=== PATIENT | female | born 1960 | race Caucasian/White ===

== ENCOUNTER 2018-01-14 23:42 | Emergency (ER) | payer SELFPAY ==
[2018-01-15 00:13] LABS: Urine Blood NEGATIVE (NEG); Urine Glucose NEGATIVE (NEG); Urine Protein NEGATIVE (NEG)
--- NOTE | 2018-01-15 00:35 | ER ---
Nurse's Notes [facility] Name: Caroline Contreras Age: 57 yrs Sex: Female : 1960 Arrival Date: 01/14/2018 Time: 23:46 Bed 6 Private MD: Diagnosis: Dysuria Presentation: 01/15 00:01 Presenting complaint: Patient states: she has had bilateral lower leg swelling for bb approx 4 months she also has pain and pressure with urination and states she is although her last menstrual cycle was 12 years ago "this is a miracle baby I am going to name him Seamus" she is also complaining of floaters and flashes since Wednesday. Transition of care: patient was not received from another setting of care. Onset of symptoms was January 15, 2018. Risk Assessment: Do you want to hurt yourself or someone else? Patient reports no desire to harm self or others. Initial Sepsis Screen: Does the patient meet any 2 criteria? No. Patient's initial sepsis screen is negative. Does the patient have a suspected source of infection? No. Patient's initial sepsis screen is negative. Care prior to arrival: None. 00:01 Method Of Arrival: Ambulatory bb 00:01 Acuity: BROWN 3 bb Triage Assessment: 00:23 General: Appears in no apparent distress. Behavior is calm, cooperative. Pain: Denies ak1 pain. EENT: No signs and/or symptoms were reported regarding the EENT system. 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 Gait is shuffling, pt c/o bilateral lower leg swelling. no edema noted. . Speech is normal, Facial symmetry appears normal. Cardiovascular: No deficits noted. Respiratory: No deficits noted. GI:. 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 : No signs and/or symptoms were reported regarding the genitourinary system. Derm: No deficits noted. Musculoskeletal: No deficits noted. 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 - Social history:: Smoking status: Patient/guardian denies using tobacco, Patient/guardian denies using alcohol, street drugs. - Ebola Screening: : No symptoms or risks identified at this time. - Family history:: not pertinent. - Hospitalizations: : No recent hospitalization is reported. Screenin:23 Abuse screen: Denies threats or abuse. Denies injuries from another. Nutritional ak1 screening: No deficits noted. Tuberculosis screening: No symptoms or risk factors identified. Fall Risk None identified. Assessment: 00:26 Reassessment: Patient appears in no apparent distress at this time. No changes from ak1 previously documented assessment. see triage assessment. 00:43 Reassessment: Patient appears in no apparent distress at this time. No changes from jd3 previously documented assessment. provider reminded of pt reporting floaters in her eyes. provider reported pt had nothing wrong with eyes and was good for discharge. pt reported understanding of discharge instructions, even and steady gait upon discharge. Vital Signs: 00:07 BP 128 / 74; Pulse 78; Resp 16 S; Temp 98.0(O); Pulse Ox 99% on R/A; Weight 63.96 kg bb (R); Height 5 ft. 1 in. (154.94 cm) (R); Pain 4/10; 00:07 Body Mass Index 26.64 (63.96 kg, 154.94 cm) ED Course: 01/14 23:46 Patient arrived in ED. ag3 01/15 00:07 Triage completed. bb 00:07 Arm band placed on Patient placed in an exam room, on a stretcher, on pulse oximetry. bb 00:19 Peng Heredia MD is Attending Physician. wa 00:20 Jody Abreu, RN is Primary Nurse. ak1 00:26 Patient has correct armband on for positive identification. Bed in low position. Call ak1 light in reach. Side rails up X 1. Pulse ox on. NIBP on. 00:46 No provider procedures requiring assistance completed. Patient did not have IV access jd3 during this emergency room visit. Administered Medications: No medications were administered Outcome: 00:35 Discharge ordered by . wa 00:46 Discharged to home ambulatory. jd3 00:46 Condition: stable 00:46 Discharge instructions given to patient, Instructed on discharge instructions, follow up and referral plans. Demonstrated understanding of instructions, follow-up care. 00:47 Patient left the ED. jd3 Signatures: Bonita Laughlin RN RN Jody Wyatt RN RN ak1 Peng Heredia MD MD wa Davies, Jonathon, RN RN jd3 Alyson Howard ag3 Corrections: (The following items were deleted from the chart) 00:47 00:43 Reassessment: Patient appears in no apparent distress at this time. No changes jd3 from previously documented assessment. provider reminded pt reporting floaters in her eyes. provider reported pt had nothing wrong with eyes and was good for discharge. pt reported understanding of discharge instructions, even and steady gait upon discharge. jd3
--- NOTE | 2018-01-15 00:35 | EDPHYS ---
Physician Documentation [facility] Name: Caroline Contreras Age: 57 yrs Sex: Female : 1960 Arrival Date: 01/14/2018 Time: 23:46 Bed 6 Private MD: ED Physician Peng Heredia HPI: 01/15 01:07 This 57 yrs old Female presents to ER via Ambulatory with complaints of Leg wa Swelling. 01:07 pt with multiple complaints. states she's with a baby she is going to name nicolette Way. says although test have been negative, she knows she's . also c/o swelling in both legs. also puffiness around the eyes which she believes is because of her . Onset: The symptoms/episode began/occurred 5 month(s) ago. Severity of symptoms: At their worst the symptoms were moderate in the emergency department the symptoms are unchanged. on going problem. The patient has not recently seen a physician. 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 - Social history:: Smoking status: Patient/guardian denies using tobacco, Patient/guardian denies using alcohol, street drugs. - Ebola Screening: : No symptoms or risks identified at this time. - Family history:: not pertinent. - Hospitalizations: : No recent hospitalization is reported. ROS: 01:10 Constitutional: Negative for fever, chills, and weight loss, Eyes: Negative for injury, wa pain, redness, and discharge, ENT: Negative for injury, pain, and discharge, Neck: Negative for injury, pain, and swelling, Cardiovascular: Negative for chest pain, palpitations, and edema, Respiratory: Negative for shortness of breath, cough, wheezing, and pleuritic chest pain, Back: Negative for injury and pain, Skin: Negative for injury, rash, and discoloration, Neuro: Negative for headache, weakness, numbness, tingling, and seizure. 01:10 All other systems are negative. 01:11 Abdomen/GI: Positive for abd distension. wa 01:11 : Positive for states she's . Exam: 01:11 Constitutional: This is a well developed, well nourished patient who is awake, alert, wa and in no acute distress. Head/Face: Normocephalic, atraumatic. Eyes: Pupils equal round and reactive to light, extra-ocular motions intact. Lids and lashes normal. Conjunctiva and sclera are non-icteric and not injected. Cornea within normal limits. Periorbital areas with no swelling, redness, or edema. ENT: Nares patent. No nasal discharge, no septal abnormalities noted. Tympanic membranes are normal and external auditory canals are clear. Oropharynx with no redness, swelling, or masses, exudates, or evidence of obstruction, uvula midline. Mucous membranes moist. Neck: Trachea midline, no thyromegaly or masses palpated, and no cervical lymphadenopathy. Supple, full range of motion without nuchal rigidity, or vertebral point tenderness. No Meningismus. Cardiovascular: Regular rate and rhythm with a normal S1 and S2. No gallops, murmurs, or rubs. Normal PMI, no JVD. No pulse deficits. Respiratory: Lungs have equal breath sounds bilaterally, clear to auscultation and percussion. No rales, rhonchi or wheezes noted. No increased work of breathing, no retractions or nasal flaring. Abdomen/GI: Soft, non-tender, with normal bowel sounds. No distension or tympany. No guarding or rebound. No evidence of tenderness throughout. Back: No spinal tenderness. No costovertebral tenderness. Full range of motion. Skin: Warm, dry with normal turgor. Normal color with no rashes, no lesions, and no evidence of cellulitis. MS/ Extremity: Pulses equal, no cyanosis. Neurovascular intact. Full, normal range of motion. Neuro: Awake and alert, GCS 15, oriented to person, place, time, and situation. Cranial nerves II-XII grossly intact. Motor strength 5/5 in all extremities. Sensory grossly intact. Cerebellar exam normal. Normal gait. Vital Signs: 00:07 BP 128 / 74; Pulse 78; Resp 16 S; Temp 98.0(O); Pulse Ox 99% on R/A; Weight 63.96 kg bb (R); Height 5 ft. 1 in. (154.94 cm) (R); Pain 4/10; 00:07 Body Mass Index 26.64 (63.96 kg, 154.94 cm) elder MDM: 00:19 Patient medically screened. wa 01:12 Differential Diagnosis normal exam. no swelling noted in face or legs. UA and UPT wa negative. unable to convince pt that there is no preg. Delusional disorder? will refer to PCP. no HI or SI. no acute psychosis. . Data reviewed: vital signs, nurses notes, lab test result(s). Test interpretation: by ED physician or midlevel provider: UA noted negative. UPT negative. 01/15 00:10 Order name: Urine Dipstick--Ancillary (enter results); Complete Time: 00:20 ms 01/15 00:10 Order name: Urine --Ancillary (enter results); Complete Time: 00:20 ms Administered Medications: No medications were administered Disposition: 01/15/18 00:35 Discharged to Home. Impression: Dysuria. - Condition is Stable. - Discharge Instructions: Dysuria. - Medication Reconciliation Form, Thank You Letter, Antibiotic Education, Prescription Opioid Use form. - Follow up: Private Physician; When: 2 - 3 days; Reason: Recheck today's complaints. - Notes: follow up with your doctor within 3 days for further evaluation of your symptoms Signatures: Dispatcher [employer] Bonita Avila RN RN Peng Dunham MD MD wa Davies, Jonathon, RN RN jd3 Corrections: (The following items were deleted from the chart) 00:47 00:35 01/15/2018 00:35 Discharged to Home. Impression: Dysuria. Condition is Stable. jd3 Forms are Medication Reconciliation Form, Thank You Letter, Antibiotic Education, Prescription Opioid Use. Follow up: Private Physician; When: 2 - 3 days; Reason: Recheck today's complaints. wa
== END 2018-01-15 00:47 | disposition home or self-care (01) ==
LOC: ER 23:42
DX: R30.0 Dysuria (principal); Z88.2 Allergy status to sulfonamides
CPT/HCPCS: 81003; 81025; 99283

== ENCOUNTER 2020-01-02 17:54 | Emergency (ER) | payer SELFPAY ==
[2020-01-02] MEDS ORDERED: NA CHLORIDE 0.9% 1,000 ML ONE (18:58)
[2020-01-02 19:23] LABS: Absolute Lymphocytes (CBC) 1.9 K/uL (0.7-4.9); Basophils % 0.4 % (0-1.3); Hematocrit 37.7 % (36.0-45.0); Lymphocytes % 23.2 % (15.3-44.8); MPV 10.3 fL (7.6-11.3); RBC Red Blood Cell Count 4.09 M/uL (3.86-4.86)
--- NOTE | 2020-01-02 19:25 | RAD REPORT ---
EXAM DESCRIPTION: RAD - Chest Single View - 01/02/2020 6:54 pm CLINICAL HISTORY: CHEST PAIN Chest pain. COMPARISON: CHEST PA AND LAT 2 VIEW dated 10/03/2014 FINDINGS: Portable technique limits examination quality. The lungs are grossly clear. The heart is normal in size. No displaced fractures. IMPRESSION: No acute intrathoracic process suspected.
[2020-01-02 19:43] LABS: ALT/SGPT 20 U/L (12-78); AST/SGOT 18 U/L (15-37); Albumin 3.8 g/dL (3.4-5.0); Alkaline Phosphatase 77 U/L (45-117); BUN Blood Urea Nitrogen 16 mg/dL (7-18); Bicarbonate 29 mmol/L (21-32); Bilirubin Direct < 0.1 mg/dL (0-0.2); Bilirubin Total 0.3 mg/dL (0.2-1.0); Glucose Level 96 mg/dL (74-106); Lipase 159 U/L (73-393); Magnesium 2.3 mg/dL (1.8-2.4); NT PRO-BNP 53 pg/mL (<125); Potassium 3.7 mmol/L (3.5-5.1); Protein, Total 7.6 g/dL (6.4-8.2); Sodium Level 141 mmol/L (136-145); Troponin (Emerg Dept Use Only) < 0.02 ng/mL (0.0-0.045)
--- NOTE | 2020-01-02 20:20 | ER ---
Nurse's Notes [facility] Name: Caroline Contreras Age: 59 yrs Sex: Female : 1960 Arrival Date: 01/02/2020 Time: 17:54 Bed 19 Private MD: Diagnosis: Abdominal tenderness;Paresthesia of skin-diffuse Presentation: 01/01 18:06 Chief complaint: Patient states: Flu shot just around 1645 Face, neck, chest started ca1 going numb. Now my belly feels bloated, and feels funny. Denies N/V/D. Coronavirus screen: Client denies travel out of the [place] in the last 14 days. At this time, the client does not indicate any symptoms associated with coronavirus-19. Ebola Screen: Patient negative for fever greater than or equal to 101.5 degrees Fahrenheit, and additional compatible Ebola Virus Disease symptoms Patient denies exposure to infectious person. Patient denies travel to an Ebola-affected area in the 21 days before illness onset. No symptoms or risks identified at this time. Initial Sepsis Screen: Does the patient meet any 2 criteria? No. Patient's initial sepsis screen is negative. Does the patient have a suspected source of infection? No. Patient's initial sepsis screen is negative. Risk Assessment: Do you want to hurt yourself or someone else? Patient reports no desire to harm self or others. Onset of symptoms was January 02, 2020. 18:06 Method Of Arrival: Ambulatory ca1 18:06 Acuity: BROWN 3 ca1 Historical: - Allergies: 18:09 Sulfa (Sulfonamide Antibiotics); ca1 - PMHx: 18:09 None; ca1 - PSHx: 18:09 endometriosis; benign breast procedure; ca1 - Immunization history:: Adult Immunizations up to date. - Social history:: Smoking status: Patient denies any tobacco usage or history of. - Family history:: not pertinent. Screenin:15 Abuse screen: Denies threats or abuse. Nutritional screening: No deficits noted. rb1 Tuberculosis screening: No symptoms or risk factors identified. Fall Risk None identified. Assessment: 18:15 General: Appears in no apparent distress. comfortable, Behavior is calm, cooperative. rb1 Neuro: Level of Consciousness is awake, alert, obeys commands, Oriented to person, place, time, situation, Reports Face, Neck, Chest numbness. Cardiovascular: Patient's skin is warm and dry. Respiratory: Airway is patent Respiratory effort is even, unlabored, Respiratory pattern is regular, symmetrical. GI: No signs and/or symptoms were reported involving the gastrointestinal system. : No signs and/or symptoms were reported regarding the genitourinary system. 19:39 Reassessment: Patient appears in no apparent distress at this time. Patient and/or fu family updated on plan of care and expected duration. Pain level reassessed. Patient is alert, oriented x 3, equal unlabored respirations, skin warm/dry/pink. 19:42 Pain: Denies pain. fu 20:11 Reassessment: Patient appears in no apparent distress at this time. Patient and/or fu family updated on plan of care and expected duration. Pain level reassessed. Patient is alert, oriented x 3, equal unlabored respirations, skin warm/dry/pink. ambulated to the restroom. Vital Signs: 18:06 BP 114 / 79; Pulse 96; Resp 18 S; Temp 97.5(TE); Pulse Ox 100% on R/A; Weight 58.97 kg ca1 (R); Height 5 ft. 2 in. (157.48 cm) (R); 19:40 BP 113 / 72; Pulse 74; Resp 20; Temp 98.2; Pulse Ox 99% ; Pain 0/10; fu 20:39 BP 114 / 75; Pulse 82; Resp 14; Pulse Ox 100% on R/A; Pain 0/10; fu 18:06 Body Mass Index 23.78 (58.97 kg, 157.48 cm) ca1 Moe Coma Score: 18:34 Eye Response: spontaneous(4). Verbal Response: oriented(5). Motor Response: obeys taz commands(6). Total: 15. NIH Stroke Scale Scores: 18:34 NIHSS Score: 0 [facility] ED Course: 17:54 Patient arrived in ED. ds1 17:59 Durga Kaur MD is Attending Physician. taz 18:08 Triage completed. ca1 18:09 Arm band placed on right wrist. ca1 18:15 Patient has correct armband on for positive identification. Bed in low position. Call rb1 light in reach. Side rails up X 1. quality assurance monitor chassis on. Pulse ox on. NIBP on. Warm blanket given. 18:42 Katie Schultz, RN is Primary Nurse. rb1 18:54 XRAY Chest (1 view) In Process Unspecified. EDMS 19:07 Inserted saline lock: 22 gauge in right antecubital area, using aseptic technique. rb1 Blood collected. 19:42 No provider procedures requiring assistance completed. fu 20:12 Durga Escobar PA is PHCP. cp 20:19 Dutch Amos MD is Referral Physician. cp 20:38 IV discontinued, bleeding controlled, Pressure dressing applied. fu Administered Medications: 19:10 Drug: NS 0.9% 1000 ml Route: IV; Rate: 1 bolus; Site: right antecubital; rb1 20:28 Follow up: Response: No adverse reaction fu Intake: 19:00 IV: 350ml; Total: 350ml. fu Outcome: 20:19 Discharge ordered by . cp 20:38 Discharged to home ambulatory, with family. fu 20:38 Condition: good 20:38 Discharge instructions given to patient, Instructed on discharge instructions, follow up and referral plans. Demonstrated understanding of instructions, follow-up care, Prescriptions given X 2. 20:40 Patient left the ED. fu NIH Stroke Scale - NIH Stroke Score Date: 01/02/2020 Time: 18:34 Total Score = 0 1a. Level of Consciousness (LOC) - 0(Alert) 1b. Level of Consciousness (LOC) (Year \T\ Age) - 0(Both) 1c. LOC Commands (Open \T\ Closes Eyes/Dishtank Operator) - 0(Both) 2. Best Gaze (Lateral Gaze Paresis) - 0(Normal) 3. Visual Field Loss - 0(No visual loss) 4. Facial Palsy - 0(Normal) 5a. Left Arm: Motor (10-second hold) - 0(No drift) 5b. Right Arm: Motor (10-second hold) - 0(No drift) 6a. Left Leg: Motor (5-second hold - always test supine) - 0(No drift) 6b. Right Leg: Motor (5-second hold - always test supine) - 0(No drift) 7. Limb Ataxia (finger/nose \T\ heel/swanson - test with eyes open) - 0(Absent) 8. Sensory Loss (pinprick arms/legs/face) - 0(Normal) 9. Best Language: Aphasia (description/naming/reading) - 0(No aphasia) 10. Dysarthria (speech clarity - read or repeat words) - 0(Normal) 11. Extinction and Inattention (visual/tactile/auditory/spatial/personal) - 0(No abnormality) Initials: taz Signatures: Dispatcher [employer] EDDurga Land MD MD cha Sanford, Toya ds1 Durga Escobar PA PA cp Barber, Rebecca, RN RN rb1 Skyler Lira RN RN fu Acob, Cheryl, RN RN ca1 Corrections: (The following items were deleted from the chart) 18:09 18:06 Chief complaint: Patient states: Flu shot just now. Face, neck, chest ca1 started going numb. Now my belly feels bloated, and feels funny. Denies N/V/D. ca1
--- NOTE | 2020-01-02 20:20 | EDPHYS ---
Physician Documentation [facility] Name: Caroline Contreras Age: 59 yrs Sex: Female : 1960 Arrival Date: 01/02/2020 Time: 17:54 Bed 19 Private MD: ED Physician Durga Kaur HPI: 01/01 18:26 This 59 yrs old Female presents to ER via Ambulatory with complaints of taz Numbness, Abdominal Pain. 18:26 The patient's problem is reported as paresthesias, all over, weakness. Onset: The taz symptoms/episode began/occurred just prior to arrival, on going since 2018. Duration: The episode is continuous. Context: the episode(s) was witnessed, by family, , happened after a flu shot. The symptoms are alleviated by nothing. The symptoms are aggravated by nothing. Associated signs and symptoms: The patient has no apparent associated signs or symptoms. Severity of symptoms: At their worst the symptoms were mild moderate in the emergency department the symptoms have improved moderately. Patient's baseline: Neuro: alert and fully oriented. The patient has experienced similar episodes in the past, multiple times. Historical: - Allergies: 18:09 Sulfa (Sulfonamide Antibiotics); ca1 - PMHx: 18:09 None; ca1 - PSHx: 18:09 endometriosis; benign breast procedure; ca1 - Immunization history:: Adult Immunizations up to date. - Social history:: Smoking status: Patient denies any tobacco usage or history of. - Family history:: not pertinent. ROS: 18:26 Constitutional: Negative for fever, chills, and weight loss, Eyes: Negative for injury, taz pain, redness, and discharge, ENT: Negative for injury, pain, and discharge, Neck: Negative for injury, pain, and swelling, Respiratory: Negative for shortness of breath, cough, wheezing, and pleuritic chest pain, Abdomen/GI: Negative for abdominal pain, nausea, vomiting, diarrhea, and constipation, Back: Negative for injury and pain, : Negative for injury, bleeding, discharge, and swelling, MS/Extremity: Negative for injury and deformity, Skin: Negative for injury, rash, and discoloration, Neuro: Negative for headache, weakness, numbness, tingling, and seizure, Psych: Negative for depression, anxiety, suicide ideation, homicidal ideation, and hallucinations, Allergy/Immunology: Negative for hives, rash, and allergies, Endocrine: Negative for neck swelling, polydipsia, polyuria, polyphagia, and marked weight changes, Hematologic/Lymphatic: Negative for swollen nodes, abnormal bleeding, and unusual bruising. 18:26 Cardiovascular: Positive for chest pain, of the chest, numbness. Exam: 18:26 Constitutional: This is a well developed, well nourished patient who is awake, alert, taz and in no acute distress. Head/Face: Normocephalic, atraumatic. Eyes: Pupils equal round and reactive to light, extra-ocular motions intact. Lids and lashes normal. Conjunctiva and sclera are non-icteric and not injected. Cornea within normal limits. Periorbital areas with no swelling, redness, or edema. ENT: Nares patent. No nasal discharge, no septal abnormalities noted. Tympanic membranes are normal and external auditory canals are clear. Oropharynx with no redness, swelling, or masses, exudates, or evidence of obstruction, uvula midline. Mucous membranes moist. Neck: Trachea midline, no thyromegaly or masses palpated, and no cervical lymphadenopathy. Supple, full range of motion without nuchal rigidity, or vertebral point tenderness. No Meningismus. Chest/axilla: Normal chest wall appearance and motion. Nontender with no deformity. No lesions are appreciated. Cardiovascular: Regular rate and rhythm with a normal S1 and S2. No gallops, murmurs, or rubs. Normal PMI, no JVD. No pulse deficits. Respiratory: Lungs have equal breath sounds bilaterally, clear to auscultation and percussion. No rales, rhonchi or wheezes noted. No increased work of breathing, no retractions or nasal flaring. Abdomen/GI: Soft, non-tender, with normal bowel sounds. No distension or tympany. No guarding or rebound. No evidence of tenderness throughout. Back: No spinal tenderness. No costovertebral tenderness. Full range of motion. Female : Normal external genitalia. Skin: Warm, dry with normal turgor. Normal color with no rashes, no lesions, and no evidence of cellulitis. MS/ Extremity: Pulses equal, no cyanosis. Neurovascular intact. Full, normal range of motion. Neuro: Awake and alert, GCS 15, oriented to person, place, time, and situation. Cranial nerves II-XII grossly intact. Motor strength 5/5 in all extremities. Sensory grossly intact. Cerebellar exam normal. Normal gait. Psych: Awake, alert, with orientation to person, place and time. Behavior, mood, and affect are within normal limits. 18:26 Musculoskeletal/extremity: Exam is negative for acute changes, ROM: full active range of motion, full passive range of motion, Circulation is intact in all extremities. Sensation intact. Compartment Syndrome exam of affected extremity: is normal. DVT Exam: No signs of deep vein thrombosis. no pain, no swelling, no tenderness, negative Homans' sign noted on exam, no appreciated bluish discoloration, no erythema, no increased warmth. 19:06 ECG was reviewed by the Attending Physician. [facility] Vital Signs: 18:06 BP 114 / 79; Pulse 96; Resp 18 S; Temp 97.5(TE); Pulse Ox 100% on R/A; Weight 58.97 kg ca1 (R); Height 5 ft. 2 in. (157.48 cm) (R); 19:40 BP 113 / 72; Pulse 74; Resp 20; Temp 98.2; Pulse Ox 99% ; Pain 0/10; fu 20:39 BP 114 / 75; Pulse 82; Resp 14; Pulse Ox 100% on R/A; Pain 0/10; fu 18:06 Body Mass Index 23.78 (58.97 kg, 157.48 cm) ca1 NIH Stroke Scale Scores: 18:34 NIHSS Score: 0 [facility] [place] Coma Score: 18:34 Eye Response: spontaneous(4). Verbal Response: oriented(5). Motor Response: obeys [facility] commands(6). Total: 15. MDM: 18:11 Patient medically screened. [facility] 18:31 Differential diagnosis: metabolic disorder, drug effects. Data reviewed: vital signs, [facility] nurses notes, lab test result(s), EKG, radiologic studies, plain films. Data interpreted: classroom monitor: rate is 96 beats/min, rhythm is regular, Pulse oximetry: on room air is 100 %. Test interpretation: by ED physician or midlevel provider: ECG, plain radiologic studies. Counseling: I had a detailed discussion with the patient and/or guardian regarding: the historical points, exam findings, and any diagnostic results supporting the discharge/admit diagnosis, lab results, radiology results, the need for outpatient follow up, for definitive care, an teletype telegrapher, a neurologist. 01/01 18:26 Order name: Basic Metabolic Panel; Complete Time: 20:13 [facility] 01/01 20:14 Interpretation: Normal except: GFR 83. 01/01 18:26 Order name: CBC with Diff; Complete Time: 20:13 [facility] 01/01 20:14 Interpretation: Normal except: MCV 92.2; RDW 11.5. 01/01 18:26 Order name: LFT's; Complete Time: 20:13 [facility] 01/01 18:26 Order name: Magnesium; Complete Time: 20:13 [facility] 01/01 18:26 Order name: NT PRO-BNP; Complete Time: 20:13 [facility] 01/01 18:26 Order name: Troponin (emerg Dept Use Only); Complete Time: 20:13 [facility] 01/01 18:26 Order name: XRAY Chest (1 view); Complete Time: 20:13 [facility] 01/01 20:14 Interpretation: Report reviewed. 01/01 18:26 Order name: EKG; Complete Time: 18:27 [facility] 01/01 18:26 Order name: Cardiac monitoring; Complete Time: 19:08 [facility] 01/01 18:26 Order name: EKG - Nurse/Tech; Complete Time: 19:08 [facility] 01/01 18:26 Order name: Lipase; Complete Time: 20:13 [facility] 01/01 18:26 Order name: D-Dimer; Complete Time: 20:13 [facility] 01/01 20:14 Interpretation: Reviewed. 01/01 19:09 Order name: Urine Dipstick--Ancillary (enter results) [facility] 01/01 18:26 Order name: IV Saline Lock; Complete Time: 19:11 [facility] 01/01 18:26 Order name: Labs collected and sent; Complete Time: 19:11 [facility] 01/01 18:26 Order name: O2 Per Protocol; Complete Time: 19:11 [facility] 01/01 18:26 Order name: O2 Sat Monitoring; Complete Time: 19:12 [facility] 01/01 18:26 Order name: Urine Dipstick-Ancillary (obtain specimen); Complete Time: 19:07 [facility] EC:06 Rate is 81 beats/min. Rhythm is regular. QRS [place] is Normal. GA interval is normal. QRS taz interval is normal. QT interval is normal. No Q waves. T waves are Normal. No ST changes noted. Clinical impression: NSR w/ Non-specific ST/T Changes and No evidence of ischemia. Interpreted by me. Reviewed by me. Administered Medications: 19:10 Drug: NS 0.9% 1000 ml Route: IV; Rate: 1 bolus; Site: right antecubital; rb1 20:28 Follow up: Response: No adverse reaction fu Disposition: 01/02/20 20:19 Discharged to Home. Impression: Abdominal tenderness, Paresthesia of skin - diffuse. - Condition is Stable. - Discharge Instructions: Abdominal Pain, Adult, Paresthesia, Abdominal Pain, Adult, [id number], Paresthesia, [place]. - Prescriptions for Bentyl 20 mg Oral Tablet - take 1 tablet by ORAL route every 6 hours As needed; 20 tablet. Pepcid 20 mg Oral Tablet - take 1 tablet by ORAL route every 12 hours for 10 days; 20 tablet. - Medication Reconciliation Form, Thank You Letter, Antibiotic Education, Prescription Opioid Use form. - Follow up: Private Physician; When: 2 - 3 days; Reason: Recheck today's complaints, Continuance of care, Re-evaluation by your physician. Follow up: [facility]; When: 2 - 3 days; Reason: Recheck today's complaints, Re-evaluation by your physician. - Problem is new. - Symptoms have improved. NIH Stroke Scale - NIH Stroke Score Date: 01/02/2020 Time: 18:34 Total Score = 0 1a. Level of Consciousness (LOC) - 0(Alert) 1b. Level of Consciousness (LOC) (Year \T\ Age) - 0(Both) 1c. LOC Commands (Open \T\ Closes Eyes/Reducing Machine Operator) - 0(Both) 2. Best Gaze (Lateral Gaze Paresis) - 0(Normal) 3. Visual Field Loss - 0(No visual loss) 4. Facial Palsy - 0(Normal) 5a. Left Arm: Motor (10-second hold) - 0(No drift) 5b. Right Arm: Motor (10-second hold) - 0(No drift) 6a. Left Leg: Motor (5-second hold - always test supine) - 0(No drift) 6b. Right Leg: Motor (5-second hold - always test supine) - 0(No drift) 7. Limb Ataxia (finger/nose \T\ heel/swanson - test with eyes open) - 0(Absent) 8. Sensory Loss (pinprick arms/legs/face) - 0(Normal) 9. Best Language: Aphasia (description/naming/reading) - 0(No aphasia) 10. Dysarthria (speech clarity - read or repeat words) - 0(Normal) 11. Extinction and Inattention (visual/tactile/auditory/spatial/personal) - 0(No abnormality) Initials: taz Signatures: Dispatcher [employer] EDMS Durga Kaur MD MD cha Page, Corey, PA PA cp Barber, Rebecca, CHRISS BANERJEE [facility] Skyler Lira RN RN fu Sandra Carlson RN RN ca1 Corrections: (The following items were deleted from the chart) 20:40 20:19 01/02/2020 20:19 Discharged to Home. Impression: Abdominal tenderness; fu Paresthesia of skin - diffuse. Condition is Stable. Discharge Instructions: Abdominal Pain, Adult, Paresthesia, Abdominal Pain, Adult, [id number], Paresthesia, [id number]. Prescriptions for Bentyl 20 mg Oral Tablet - take 1 tablet by ORAL route every 6 hours As needed; 20 tablet, Pepcid 20 mg Oral Tablet - take 1 tablet by ORAL route every 12 hours for 10 days; 20 tablet. and Forms are Medication Reconciliation Form, Thank You Letter, Antibiotic Education, Prescription Opioid Use. Follow up: Private Physician; When: 2 - 3 days; Reason: Recheck today's complaints, Continuance of care, Re-evaluation by your physician. Follow up: [facility]; When: 2 - 3 days; Reason: Recheck today's complaints, Re-evaluation by your physician. Problem is new. Symptoms have improved. cp
[2020-01-02 21:00] VITALS: TEMP 98.2
[2020-01-02 21:05] VITALS: BP 114/75; O2SAT 100
[2020-01-02 22:17] LABS: Urine Glucose NEGATIVE (NEG)
[2020-01-02 22:18] LABS: Urine Blood NEGATIVE (NEG); Urine Protein NEGATIVE (NEG)
--- NOTE | 2020-01-03 05:38 | EKG ---
Test Date: 2020-01-02 Test Time: 19:05:34 Floor [place]: ROMEL MEASUREMENT RESULTS: Intervals: Rate: 81 MD: 136 QRSD: 76 QT: 376 QTc: 436 [place]: P: 74 MD: 136 QRS: -8 T: 49 INTERPRETIVE STATEMENTS: Normal sinus rhythm Nonspecific ST abnormality Abnormal ECG No previous ECG available for comparison Electronically Signed On 01-03-20 05:37:57 CDT by Ede Michelle
== END 2020-01-02 20:40 | disposition home or self-care (01) ==
LOC: ER 17:54
DX: R10.819 Abdominal tenderness, unspecified site (principal); Z88.2 Allergy status to sulfonamides
CPT/HCPCS: 36415; 71045; 80048; 80076; 81003; 83690; 83735; 83880; 84484; 85025; 85379; 93005; 99284; J7030